=== PATIENT | female | born 1950 | race Caucasian/White ===

== ENCOUNTER 2025-02-25 14:33 | Inpatient (IN) | payer MEDICARE, OTHER, SELFPAY ==
[2025-02-25] VITALS (11 sets, daily range): BP systolic 113–158; BP diastolic 52–76; PULSE 76–91; RESP 16–22; TEMP 36.6–36.9; O2SAT 88–96; BMI 27.4
--- NOTE | 2025-02-25 | ECG_ITS ---
Test Reason : SOB Blood Pressure : */* mmHG Vent. Rate : 85 BPM Atrial Rate : 85 BPM P-R Int : 172 ms QRS Dur : 78 ms QT Int : 378 ms P-R-T Axes : 70 73 86 degrees QTcB Int : 449 ms Poor data quality, interpretation may be adversely affected Sinus rhythm with Premature atrial complexes Otherwise normal ECG No previous ECGs available Referred By: Generic ED Physician Electronically Signed By:
--- NOTE | ~2025-02-25 | XR_ITS ---
EXAMINATION: XR CHEST CLINICAL INFORMATION: no improvement after abx for pna COMPARISON: None available. TECHNIQUE: 2 views of the chest were obtained. FINDINGS: Hyperinflated lungs. No consolidation, pleural fissure pneumothorax. Pulmonary reticular pattern. Cardiomediastinal silhouette size is normal. Calcified plaque thoracic aortic arch. Multilevel thoracic and upper lumbar spondylosis. S-shaped curvature of the thoracolumbar spine. Osteopenia versus osteoporosis. Degenerative changes in the acromioclavicular joints. XR/XR chest 2V IMPRESSION: Consider chronic interstitial lung disease without acute airspace disease. Electronically signed by: Jose J Antunez MD 02/25/2025 03:42 PM EDT
--- NOTE | 2025-02-25 14:56 | ED_ITS ---
HPI - General Adult General Chief complaint: Dyspnea Stated complaint: SOB,RECENT PNA,94% RA,DUONEB GIVEN PER EMS Time Seen by Provider: 02/25/25 14:56 Source: patient, EMS, RN notes reviewed and old records reviewed Mode of arrival: EMS Limitations: no limitations History of Present Illness ED Provider: Julio C HPI narrative: Patient is a 74-year-old female with pmhx hypothyroidism presenting to the emergency department with complaint of shortness of breath and cough despite recent treatment for pneumonia. States that she completed the full course of prednisone and abx prescribed to her. Denies history of asthma or COPD but states she typically gets bronchitis twice a year. Denies chest pain, palpitations, leg swelling, weight gain. Denies fevers. MD complaint: shortness of breath Onset (ago): week(s) Related Data Allergies Allergy/AdvReac Type Severity Reaction Status Date / Time bupropion [From Wellbutrin] Allergy Intermediate Headache Verified 02/25/25 15:02 Penicillins Allergy Intermediate Rash Verified 02/25/25 15:02 Sulfa (Sulfonamide Allergy Intermediate Rash Verified 02/25/25 15:02 Antibiotics) Review of Systems 2 Review of Systems: as per hpi Yes all other systems are reviewed and are negative Constitutional: Constitutional: Reports as per HPI PMFSH Past Medical History Medical History (Updated 02/25/25 @ 17:27 by Ruth Ann Bunch NP) High cholesterol Hypothyroid Surgical History (Updated 02/25/25 @ 15:06 by Jessie Aleman RN) S/P tonsillectomy H/O breast surgery Social History Social History Smoked in Last 30 Days: Yes Use of substances other than those prescribed or required for medical reasons: No Advance Directives: No Advance Directives Information Provided: No Do you have a plan to hurt others: No Plan Physical Exam ED Vital Signs: Vital Signs - 24 hr 02/25/25 14:44 02/25/25 15:00 02/25/25 15:09 Temperature 98.1 F 97.9 F Pulse Rate 84 81 Respiratory Rate 22 H 18 Blood Pressure 124/55 L 124/55 L Pulse Oximetry 90 L 88 L 94 Oxygen Delivery Method Room Air Room Air Nasal Cannula Oxygen Flow Rate 2 02/25/25 16:03 Temperature Pulse Rate 76 Respiratory Rate 19 Blood Pressure 136/61 Pulse Oximetry 96 Oxygen Delivery Method Nasal Cannula Oxygen Flow Rate 2 BMI result Body Mass Index 27.4 Vital signs have been reviewed and appear to be correct. Blood pressure normal. Heart rate normal. Respiratory rate normal. Temperature normal. Oxygen saturation hypoxic on room air. Const General: cooperative, healthy appearing and no acute distress Orientation/consciousness: oriented to person, oriented to place, oriented to time and patient oriented x3 Limitations: no limitations HENMT Head: Yes normocephalic and Yes atraumatic Ears: external ears normal General nose exam: Normal external nose present Face and sinus: Yes face symmetric Mouth: oropharynx normal and moist mucous membranes Throat: Yes uvula midline Eyes Pupils: Equal, round and reactive pupils present Neck Neck: Yes normal visual inspection and Yes supple Resp Effort & Inspection: normal respiratory effort and able to speak in complete sentences Auscultation: wheezes expiratory wheezes and throughout Cardio Rate: regular rate Rhythm: regular rhythm Heart sounds: S1 normal heart sound present and S2 normal heart sound present GI Palpation (GI): Soft to palpation and nontender Auscultation: normoactive bowel sounds General: Yes no CVA tenderness Back/Spine/Pelvis Back: no CVA tenderness Skin General skin exam: elasticity normal and turgor normal Neuro General: oriented to person, oriented to place, oriented to time, patient oriented x3, moves all extremities, no focal motor deficits and CN's II-XI intact bilaterally Cranial nerves: Yes Equal, round and reactive pupils present Cognition (Neuro): normal cognition Extrem General: Yes full ROM, Yes no pedal edema and Yes no calf tenderness Psych Mental Status: mental status grossly normal Affect: normal affect Thought process: Normal thought process present Medical Decision Making Medical Decision Making MDM Narrative: Patient is a 74-year-old female with pmhx hypothyroidism presenting to the emergency department with complaint of shortness of breath and cough despite recent treatment for pneumonia. On exam patient is awake, A+Ox3, hypoxic on room air, VS otherwise WNL, afebrile, normal neurological exam without focal deficits, physical exam findings as above. Given reported symptoms and physical exam findings, initial differential includes but is not limited to failed outpatient treatment of pneumonia, viral illness, bronchitis. Unlikely PE. Labs notable for left shift without leukocytosis. Viral panel negative. X-ray notable for reticular pattern without evidence of pneumonia. My interpretation is in agreement with the radiologist's interpretation. Case discussed with Dr. West who accepts admission to medicine. Differential Diagnosis Differential Diagnoses: The differential diagnosis associated with the presentation includes as per [facility] Admission/Observation Consideration of admission/observation: Escalation of care including admission/observation considered Patient would have been admitted to the hospital had their work up had any findings where hospital admission was appropriate and their clinical presentation warranted hospital admission. Consult Healthcare Provider Management of the patient was discussed with: Hospitalist Lab Data [facility] Lab Attestation statement: I reviewed the patient's lab results. as per [facility] 02/25/25 15:50 02/25/25 15:50 Labs: Lab Results 02/25/25 Range/Units 15:50 WBC 10.3 (4.8-10.8) X10*3/uL RBC 4.50 (4.20-5.50) X10*6/uL Hgb 13.1 (12.0-16.0) g/dl Hct 41.1 (37.0-47.0) % MCV 91.3 (80.0-98.0) fL MCH 29.1 (27.0-33.0) pg MCHC 31.9 (31.0-35.0) g/dl RDW 13.1 (11.0-16.0) % Plt Count 581 H (160-400) X10*3/uL MPV 8.2 L (9.4-12.3) fL Immature Gran % (Auto) 0.8 H (0.0-0.4) % Neut % (Auto) 84.9 H (45-73) % Lymph % (Auto) 12.5 L (20-40) % [place] % (Auto) 1.6 L (2-11) % Eos % (Auto) 0.0 (0-4) % Baso % (Auto) 0.2 (0-2) % Lymph # (Auto) 1.3 (1.2-4.9) X10*3/uL [place] # (Auto) 0.2 (0.1-1.2) X10*3/uL Eos # (Auto) 0.0 (0.0-0.4) X10*3/uL Baso # (Auto) 0.0 (0.0-0.2) X10*3/uL Abs Immat Gran (auto) 0.08 H (0.00-0.03) X10*3/uL Absolute Neuts (auto) 8.8 H (2.0-8.3) x10*3/uL Absolute Nucleated RBC 0.000 (0.0-0.012) X10*3/uL Nucleated RBC % (auto) 0.0 (0.0-0.2) /100WBC Sodium 142 (135-145) mmol/L Potassium 4.2 (3.3-5.1) mmol/L Chloride 104 (96-108) mmol/L Carbon Dioxide 30 H (22-29) mmol/L Anion Gap 12 (12-20) BUN 16 (9-16) mg/dL Creatinine 0.62 (0.5-1.4) mg/dL Estim Creat Clear Calc 81.7 Estimated GFR > 60 Random Glucose 145 H (60-115) mg/dL Calcium 9.0 (8.4-10.2) mg/dL Total Bilirubin 0.3 (0.0-1.0) mg/dL AST 30 (5-31) U/L ALT 50 H (0-31) U/L Alkaline Phosphatase 63 (39-117) U/L Total Protein 6.8 (6.5-8.0) g/dL Albumin 3.8 (3.5-5.0) g/dL Influenza Type A (PCR) NEGATIVE (Negative) Influenza Type B (PCR) NEGATIVE (Negative) RSV RNA Qual (PCR) NEGATIVE (Negative) SARS-CoV-2 RNA (RT-PCR) NEGATIVE (Negative) Independent Interpretation I performed an independent interpretation of an: Plain X-Ray Radiology Impression Discussion of test interpretation with radiology: I have reviewed the radiologist's reading. Radiologist Impression: EXAMINATION: XR CHEST CLINICAL INFORMATION: no improvement after abx for pna COMPARISON: None available. TECHNIQUE: 2 views of the chest were obtained. FINDINGS: Hyperinflated lungs. No consolidation, pleural fissure pneumothorax. Pulmonary reticular pattern. Cardiomediastinal silhouette size is normal. Calcified plaque thoracic aortic arch. Multilevel thoracic and upper lumbar spondylosis. S-shaped curvature of the thoracolumbar spine. Osteopenia versus osteoporosis. Degenerative changes in the acromioclavicular joints. XR/XR chest 2V IMPRESSION: Consider chronic interstitial lung disease without acute airspace disease. External Record Review External record reviewed: Inpatient record, Office record and Outpatient record Discharge Plan Discharge Patient Disposition: Admitted As Inpatient Print Language: Slovak
[2025-02-25 15:56] LABS: MANUAL DIFF FLAG NO
[2025-02-25 15:59] LABS: Basophils Percent Auto 0.2 % (0-2); Hematocrit 41.1 % (37.0-47.0); Hemoglobin 13.1 g/dl (12.0-16.0); Imm Gran Abs Auto 0.08 X10*3/uL (0.00-0.03); Imm Gran Pct Auto 0.8 % (0.0-0.4); Lymphocytes Absolute Auto 1.3 X10*3/uL (1.2-4.9); Lymphocytes Percent Auto 12.5 % (20-40); Mean Corpuscular HGB Conc 31.9 g/dl (31.0-35.0); Mean Corpuscular Hemoglobin 29.1 pg (27.0-33.0); Mean Corpuscular Volume 91.3 fL (80.0-98.0); Mean Platelet Volume 8.2 fL (9.4-12.3); Monocytes Absolute Auto 0.2 X10*3/uL (0.1-1.2); Monocytes Percent Auto 1.6 % (2-11); Neutrophils Absolute Auto 8.8 x10*3/uL (2.0-8.3); Neutrophils Percent Auto 84.9 % (45-73); Platelet Count 581 X10*3/uL (160-400); Red Cell Distribution Width 13.1 % (11.0-16.0); White Blood Count 10.3 X10*3/uL (4.8-10.8)
[2025-02-25 16:19] LABS: Alanine Aminotransferase 50 U/L (0-31); Albumin Level 3.8 g/dL (3.5-5.0); Alkaline Phosphatase 63 U/L (39-117); Anion Gap 12 (12-20); Aspartate Amino Transferase 30 U/L (5-31); Bilirubin Total 0.3 mg/dL (0.0-1.0); Blood Urea Nitrogen 16 mg/dL (9-16); Carbon Dioxide 30 mmol/L (22-29); Chloride 104 mmol/L (96-108); Creatinine Clr Calc Pharmacy 81.7; Estimated Glomerular Filt Rate > 60; Glucose Random 145 mg/dL (60-115); Potassium 4.2 mmol/L (3.3-5.1); Sodium 142 mmol/L (135-145); Total Protein 6.8 g/dL (6.5-8.0)
--- OUTSIDE RECORDS SUMMARY | 2025-02-25 16:31 | XMS_ITS ---
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 Generated for Printi liban/Fasamig/eTransmitting on:?02/25/2025 12:54 PM EDT
--- OUTSIDE RECORDS SUMMARY | 2025-02-25 16:31 | XMS_ITS ---
Author Organization [facility] Address [address] [place] [address] Care Team Providers Care Rn On Site Name Role Phone Ciera Cai Primary Care Provider Unavaila ble Black, Bhavna Unavailable [phone] Allergies Allergen (clinical drug ingredient) Drug/Non Drug Allergy documented on EMR Reaction Allergy Type Onset Date Status aspirin Aspirin Unknown Drug Allergy Active sulfamethoxazole / trimethoprim Bactrim Unknown Drug Allergy Active Penicillin Unknown Drug Allergy Active REASON FOR VISIT Dr Thibodeaux Medications Medication SIG (Take, Route, Frequency, Duration) Notes Start Date End Date Status Albuterol Sulfate HFA 108 (90 Base) MCG/ACT INHALE 2 PUFFS EVERY 6 HOURS NEEDED FOR WHEEZE Inhalation for 25 Days Active Wixela Inhub 500-50 MCG/ACT TAKE 1 PUFF BY MOUTH TWICE A DAY Inhalation for 30 Days Active Atorvastatin Calcium 20 MG TAKE 1 TABLET BY MOUTH EVERYDAY AT BEDTIME Oral for 90 Days Active Clobetasol Propionate 0.05 % External for 60 Days Active Triamcinolone & Emollient 04/02/2024 Active Levothyroxine Sodium 75 MCG PLEASE SEE A TTACHED FOR DETAILED DIRECTIONS Oral for 90 Days Active Social History Tobacco Use: Social History Observation Description Date Details (start date - stop date) Current Smoker NA - NA Tobacco Use/Smoking Question Answer Notes Are you a: current smoker Alcohol Screen Question Answer Notes Did you have a drink containing alcohol in the p ast year? No Points 0 Interpretation Negative Tobacco use other than smoking: Question Answer Notes Are you an other tobacco user? No Vital Signs Height 5 ft 4 in in 07/04/2024 Weight 150 lbs 07/04/2024 BMI 25.74 kg/m2 07/04/2024 Encounters Encounter Location Date Provider Diagnosis [facility] [place] [address] [place] [address] 07/04/2024 Bhavna Reed Plan Of Treatment No Information Progress Notes * Andreia LEROYDOB:[birth year] (74 yo F)Acc No.[id number]:07/04/2024 Progress Notes Patient:?Dax LEROY Provider:?Bhavna Reed DPM :1950???Age:74 Y???Sex:Female D ate:07/04/2024 Address:[address] [place] [address] [place], [place] Pcp:Ciera Cai Subjective: * Chief Complaints: * ???1. Dr Thibodeaux. * ROS:?General/Constitutional:?Nausea?denies.?Vomiting?denies.?Hunger Thirst?denies.?Loss appetite?denies.?Chills?denies.?Fatigue?denies.?Fever?denies.?Night Sweats?denies.?Unexplained weight loss?denies.?Unexplained weight gain?denies.?HEENTM:?Dentures?denies.?Dizziness?denies.?Glasses/contacts?admits.?Retinopathy?de nies.?Blurred/double vision?denies.?TMJ?denies.?Discharge/drainage?denies.?Implants?denies.?Sore throat?denies.?Dental implants?denies.?Hard of hearing ?denies.?Difficulty chewing/swallowing/speaking?denies.?Nose bleeds?denies.?Sore mouth?denies.?Respiratory:?On Oxygen?denies.?Pneumonia/pleurisy?denies.?Bronchitis?admits.?Emphysema?denies.?C oughing?admits.?Cough blood?denies.?Shortness of breath?admits.?Wheezing?admits.?Cardiovascular:?Pacemaker?denies.?MVP?denies.?WPW?denies.?CHF?denies.?Heart attack?denies.?Septal defect?denies.?Rapid beat?denies.?Chest pain ?denies.?Atrial Fib.?denies.?Murmur/Palpitations?denies.?Gastrointestinal:?Hemorrhoids?denies.?Stomach/Abdominal pain?denies.?Dark blood stool?denies.?Irritable bowel ?denies.?Constipation?denies.?Diarrhea?denies.?Hematology:?Swelling?denies.?Clots?denies.?Varicose Veins?denies.?Bruising?denies.?Bleeding problem?denies.?Genitourinary:?Blood urine?denies.?Frequent/Painfu/urination/bladder control?denies.?Kidney stones?denies.?Infection (UTI)?denies.?Nephropathy?denies.?sex trans dis (STD)?denies.?Prostate?denies.?Musculoskeletal:?Hammertoes?denies.?Bunions?denies.?Back Pain?denies.?Muscle Cramps/ Resting?denies.?Muscle cramps / walking?denies.?Generalized aches and pains?admits.?Weakness?denies.?Integ.:?Mckay?denies.?Scars?denies.?Corns/calluses?admits.?Ingrown nails?denies.?Painful nails?denies.?Open Sores?denies.?Rashes?denies.?Neurologic:?Difficulty sleeping?denies.?Brain disorder?denies.?Numbness?admits.?Balance trouble?denies.?Confusion?denies.?Fainting/blackouts?denies.?Tingling?admits.?Tr emors?denies.? * Medical History:?Arthritis, Asthma, Hiatal hernia, Numbness, Psoriasis/eczema, Stomach ulcer, Thyroid, Measles, Chicken pox. * Family History:?Mother: dece ased, diagnosed with Other malignant neoplasm of unspecified site.?Father: .? Nephew - Diabetes. * Social History:?Tobacco Use:?Tobacco Use/Smoking?Are you a:?current smoker ?Tobacco use other than smoking?Are you an other tobacco user??No ???Drugs/Alcohol:?Drugs?Have you used drugs other than those for medical reasons in the past 12 months??No ?Alcohol Screen?Did you have a drink containing alcohol in the past year??No ?Points?0 ?Interpretation?Negative ???Miscellaneous:?Caffeine: yes, 4 cups. ?Children: yes, 2. ?Exercise: no. ?Marital status: . * Medications:?Taking Levothyr oxine Sodium 75 MCG Tablet PLEASE SEE ATTACHED FOR DETAILED DIRECTIONS Oral , Taking Atorvastatin Calcium 20 MG Tablet TAKE 1 TABLET BY MOUTH EVERYDAY AT BEDTIME Oral , Taking Triamcinolone & Emollient , Taking Clobetasol Propionate 0.05 % Cream External , Taking Albuterol Sulfate HFA 108 (90 Base) MCG/ACT Aerosol Solution INHALE 2 PUFFS EVERY 6 HOURS NEEDED FOR WHEEZE Inhalation , Taking Wixela Inhub 500-50 MCG/ACT Aerosol Powder Breath Activated TAKE 1 PUFF BY MOUTH TWICE A DAY Inhalation * Allergies:?Penicillin, Bactr im, Aspirin. Objective: * Vitals:?Ht: 5 ft 4 in, Wt:15 0, BMI:25.74, Shoe size: 7.5, Ht-cm: 162.56 cm, Wt- k.04 kg. Assessment: Plan: * Treatment: * Images: * The named appointment provid er may or may not be the originator of this progress note, and it is not deemed complete until electronically signed by the appointment provider. Sign off status: Pending * Provider:Kalen Reed DPM Date:?2023 Generated for Arley louie/Obed/Dmitriy on:?02/25/2025 12:54 PM EDT
--- OUTSIDE RECORDS SUMMARY | 2025-02-25 16:31 | XMS_ITS ---
Author Name [facility] Organization Unknown Encounters Encounter Type Encounter Reason Primary Diagnosis Location Date Ambulatory [facility] 10/13/2024
--- OUTSIDE RECORDS SUMMARY | 2025-02-25 16:31 | XMS_ITS ---
Author Organization [facility] Address [address] [place] [address] Care Team Providers Care Naval Designer Name Role Phone Ciera Cai Primary Care Provider Unavaila ble Black, Bhavna Unavailable [phone] Allergies Allergen (clinical drug ingredient) Drug/Non Drug Allergy documented on EMR Reaction Allergy Type Onset Date Status aspirin Aspirin Unknown Drug Allergy Active sulfamethoxazole / trimethoprim Bactrim Unknown Drug Allergy Active Penicillin Unknown Drug Allergy Active Results Component Value Reference Range Notes X ray : Foot, right 3V Reviewed date:06/17/2024 02:57:39 PM Interpretation:See Examination above Performing Lab: Notes/Report: See Examination above REASON FOR VISIT Pcp- 06/10/24, Painful Toe(s), Foot pain Medications Medication SIG (Take, Route, Frequency, Duration) Notes Start Date End Date Status Wixela Inhub Active Clobetasol Propionate 0.05 % External for 60 Days Active Triamcinolone (oint)-Silicone Active Albuterol Active Atorvastatin Calcium 20 MG 1 tablet Oral ly Once a day Active Levothyroxine Sodium 75 MCG 1 tablet in the morning on an empty stomach Orally Once a day Active Social History Tobacco Use: Social History Observation Description Date Details (start date - stop date) Current Smoker NA - NA Tobacco Use/Smoking Question Answer Notes Are you a: current smoker How often do you smoke cigarettes? every day How many cigarettes a day do you smoke? 11-20 How soon after you wake up do you smoke your fir st cigarette? 6-30 minutes Are you interested in quitting? Not ready to john t Alcohol Screen Question Answer Notes Did you have a drink containing alcohol in the p ast year? No Points 0 Interpretation Negative Tobacco use other than smoking: Question Answer Notes Are you an other tobacco user? No Problems Problem Type SNOMED Code ICD Code Onset Dates Problem Status W/U Status Risk Notes Problem Acquired hammer toe of right foot (7489698677781471) Other hammer toe(s) (acquired), right foot (M20.41) Active confirmed Problem Localized, primary osteoarthritis of the ankle and/or foot (937642092) Arthritis of joint of lesser toe, right (M19.071) Active confirmed Problem Acquired hallux valgus (13201429) Hallux valgus (acquired), right foot (M20.11) Active confirmed Problem [id number] Hallux rigidus, right foot (M20.21) Active confirmed Vital Signs Height 5ft 4in in 06/17/2024 Weight 150 lbs 06/17/2024 BMI 25.74 kg/m2 06/17/2024 Blood pressure systolic 120 mm Hg 06/17/20 24 Blood pressure diastolic 60 mm Hg 024 Encounters Encounter Location Date Provider Diagnosis [facility] [address] [address] 06/17/2024 Bhavna Black Pain in right toe(s) M79.674 ; Other hammer toe(s) (acquired), right foot M20.41 ; Arthritis of joint of lesser toe, right M19.071 ; Subluxation of metatarsophalangeal joint of toe, initial encounter S93.149A ; Pain in right foot M79.671 ; Pain in right ankle and joints of right foot M25.571 ; Bursitis of intermetatarsal bursa of right foot M77.51 ; Metatarsalgia, right foot M77.41 and Hallux rigidus, right foot M20.21 Assessments Encounter Date Diagnosis (ICD Code) Assessment Notes Treatment Notes Treatment Clinical Notes Section Notes 06/17/2024 Pain in right toe(s) (ICD-10 - M79.674) 06/17/2024 Other hammer toe(s) (acquired), right foot (ICD-10 - M20.41) 06/17/2024 Arthritis of joint o f lesser toe, right (ICD-10 - M19.071) 06/17/2024 Subluxation of metatarsophalangeal joint of toe, initial encounter (ICD-10 - S93.149A) 06/17/2024 Pain in right foot (ICD-10 - M79.671) 06/17/2024 Pain in right ankle and joints of right foot (ICD-10 - M25.571) 06/17/2024 Bursitis of intermetatarsal bursa of right foot (ICD-10 - M77.51) 06/17/2024 Metatarsalgia, right foot (ICD-10 - M77.41) 06/17/2024 Hallux rigidus, righ t foot (ICD-10 - M20.21) Plan Of Treatment Next Appt Details Follow Up: prn, Reason: Progress Notes * Andreia LEROYDOB:[birth year] (74 yo F)Acc No.[id number]:06/17/2024 Progress Notes Patient:?Dax Leroy Provider:?Bhavna Rede DPM :1950???Age:74 Y???Sex:Female D ate:06/17/2024 Address:[address] [place], [place] [id number] Pcp:Ciera Cai Subjective: * Chief Complaints: * ???Pcp- 06/10/24Painful Toe( s)Foot pain * HPI: ???Toe pain:?Nature:?tenderness.?Location:?Right foot.?Duration:?several months.?Course:?worse.?Aggravated by:?any pressure, shoes.?Treatments:?rest/alter normal daily activity, change in shoes.?Foot Pain:?Location:?RIGHT.?Duration:?, several months.?Course:?worse.?Aggravated:?any pressure.?Treatments:?rest/alter normal daily activity ,?.? * ROS:?General/Constitutional:?Nausea?denies.?Vomiting?denies.?Hunger Thirst?denies.?Loss appetite?denies.?Chills?denies.?Fatigue?denies.?Fever?denies.?Night Sweats?denies.?Unexplained weight loss?denies.?Unexplained weight gain?denies.?HEENTM:?Dentures?denies.?Dizziness?denies.?Glasses/contacts?admits.?Retinopathy?de nies.?Blurred/double vision?denies.?TMJ?denies.?Discharge/drainage?denies.?Implants?denies.?Sore throat?denies.?Dental implants?denies.?Hard of hearing ?denies.?Difficulty chewing/swallowing/speaking?denies.?Nose bleeds?denies.?Sore mouth?denies.?Respiratory:?On Oxygen?denies.?Pneumonia/pleurisy?denies.?Bronchitis?admits.?Emphysema?denies.?C oughing?admits.?Cough blood?denies.?Shortness of breath?admits.?Wheezing?admits.?Cardiovascular:?Pacemaker?denies.?MVP?denies.?WPW?denies.?CHF?denies.?Heart attack?denies.?Septal defect?denies.?Rapid beat?denies.?Chest pain ?denies.?Atrial Fib.?denies.?Murmur/Palpitations?denies.?Gastrointestinal:?Hemorrhoids?denies.?Stomach/Abdominal pain?denies.?Dark blood stool?denies.?Irritable bowel ?denies.?Constipation?denies.?Diarrhea?denies.?Hematology:?Swelling?denies.?Clots?denies.?Varicose Veins?denies.?Bruising?denies.?Bleeding problem?denies.?Genitourinary:?Blood urine?denies.?Frequent/Painfu/urination/bladder control?denies.?Kidney stones?denies.?Infection (UTI)?denies.?Nephropathy?denies.?sex trans dis (STD)?denies.?Prostate?denies.?Musculoskeletal:?Hammertoes?denies.?Bunions?denies.?Back Pain?denies.?Muscle Cramps/ Resting?denies.?Muscle cramps / walking?denies.?Generalized aches and pains?admits.?Weakness?denies.?Integ.:?Mckay?denies.?Scars?denies.?Corns/calluses?admits.?Ingrown nails?denies.?Painful nails?admits.?Open Sores?denies.?Rashes?denies.?Neurologic:?Difficulty sleeping?denies.?Brain disorder?denies.?Numbness?admits.?Balance trouble?denies.?Confusion?denies.?Fainting/blackouts?denies.?Tingling?admits.?Tr emors?denies.? * Medical History:? * Surgical History:?breast bio psy colonoscopy tonsillectomy x2 * Hospitalization/Major Diagno stic Procedure:?Denies Past Hospitalization * Family History:?Mother: dece ased, diagnosed with Other malignant neoplasm of unspecified site.?Father: .? Nephew - Diabetes. * Social History:?Tobacco Use:?Tobacco Use/Smoking?Are you a:?current smoker ?How often do you smoke cigarettes??every day ?How many cigarettes a day do you smoke??11-20 ?How soon after you wake up do you smoke your first cigarette??6-30 minutes ?Are you interested in quitting??Not ready to quit ?Tobacco use other than smoking?Are you an other tobacco user??No ???Drugs/Alcohol:?Drugs?Have you used drugs other than those for medical reasons in the past 12 months??No ?Alcohol Screen?Did you have a drink containing alcohol in the past year??No ?Points?0 ?Interpretation?Negative ???Miscellaneous:?Caffeine: yes, 4 cups. ?Children: yes, 2. ?no Exercise. ?Marital status: . ?Occupation: Retired- [employer]. * Medications:?TakingWixela In hub Albuterol Triamcinolone (oint)-Silicone Atorvastatin Calcium 20 MG Tablet 1 tablet Orally Once a dayLevothyroxine Sodium 75 MCG Tablet 1 tablet in the morning on an empty stomach Orally Once a dayClobetasol Propionate 0.05 % Cream External Medication List reviewed and reconciled with the patientTaking Wixela Inhub Taking Albuterol Taking Triamcinolone (oint)-Silicone Taking Atorvastatin Calcium 20 MG Tablet 1 tablet Orally Once a dayTaking Levothyroxine Sodium 75 MCG Tablet 1 tablet in the morning on an empty stomach Orally Once a dayTaking Clobetasol Propionate 0.05 % Cream External Medication List reviewed and reconciled with the patient * Allergies:?PenicillinBactrim Aspirinyes[Allergies Verified] Objective: * Vitals:?Ht: 5ft 4in, Wt:150, BMI:25.74, Shoe size: 7.5, BP:120/60 mm Hg, Ht-cm: 162.56 cm, Wt-k.04 kg. * Examination: ???General Examination: ?GENERAL APPEARANCE:?Reveals a pleasant, alert, well nourished, well- developed, well hydrated individual, who demonstrates proper attention to hygiene/body habitus, and is in no acute distress, Pt serves as own historian for office visit today.?ORIENTED:?person, place, and time.?Orthopedic: ?MUSCLE STRENGTH:?5/5 all groups in a symmetrical fashion, B/L.?GAIT ABNORMALITY:?antalgic.?FOOT MORPHOLOGY:?normal , B/L.?BUNION:?Dorso-Medially prominent 1st MPJ , inflammation present , Limited 1st MPJ Dorsal ROM , Limited 1st MPJ Plantar ROM , Crepitus with ROM present right.?DIGITAL DEFORMITIES:?Digital contracture, PIPJ, 2-5 B/L, incompl-reducible with WB, or to push-up test, no over, nor underlapping , Reveals pain/swelling/redness/enlargement of PIPJ , T8 , T9.?MPJ PATHOLOGY:? Pain, swelling, and inflammation to dorsal? MPJ(s), 4,5??RIGHT, No MPJ pain with ROM, [ - ] Ecchymosis.?FOOTWEAR:? shoe gear properties exacerbate patients foot/toe deformity.?Neurological: ?SENSORY:?Neurological exam reveals intact sensorium, pain sensation normal, vibration sensation intact, pinprick sensation is normal in the lower extremities, Pt denies, anesthesia, burning, paresthesia, tingling, B/L.?TINEL'S COMPRESSION:? Negative, Saphenous nerve distribution, Right , Negative tarsal tunnel, anisa pedis, and medial calcaneal nerves, Right.?Neuroma Pain: ?PALPATION:?No interspace pain noted on palpation.?Vascular: ?DP PULSES:?2/4, B/L.?PT PULSES:?2/4, B/L.?CAPILLARY FILL TIME:?immediate, all digits, B/L.?SKIN TEMPERTURE GRADIENT OF THE LOWER EXTERMITIES:?normal, warm to cool, proximal to distal, B/L, B/L.?HAIR GROWTH/TEXTURE/ELASTICITY/TURGOR:?normal, B/L.?PIGMENTATION:?normal, B/L.?EDEMA:?absent, B/L.?X-Rays - IMAGING REPORT: ?Clinical Indication(s):? Evaluate Biomechanical Deformity ,Evaluate for Fracture.?Views:??3 views of Foot, AP, LAT, LO, RIGHT.?Findings:?, normal bone and soft tissue density consistent for patients age and sex ] 4,5 th Right metatarsal with hypertrophied MTH.?Digits:? show asymmetrical joint space narrowing at the PIPJ consistent with clinical finding of hammertoe deformity.?HAV:?there is asymmetrical narrowing of the 1st MPJ joint space , there is increased density of the 1st MPJ with asymmetrical joint space narrowing , there is squaring of the 1st MTH , there is an exostosis located at the dorsal aspect of the 1st MTH , there is an exostosis located at the dorsal aspect of the base of the proximal phalanx.?Fracture:?old fx , mild displaced , intra-articular extending into joint margin , base of , middle phalange , T8.? Assessment: * Assessment: 1.?Pain in right toe(s) - M7 9.674?2.?Other hammer toe(s) (acquired), right foot - M20.41 (Primary)?3.?Arthritis of joint of lesser toe, right - M19.071?4.?Subluxation of metatarsophalangeal joint of toe, initial encounter - S93.149A?5.?Pain in right foot - M79.671?6.?Pain in right ankle and joints of right foot - M25.571?7.?Bursitis of intermetatarsal bursa of right foot - M77.51?8.?Metatarsalgia, right foot - M77.41?9.?Hallux rigidus, right foot - M20.21? Plan: * Treatment: * Procedure Codes:?61049 X-RAY EXAM OF RIGHT FOOT 3V, Modifiers: 26 , RT * Preventive Medicine:? ??Counseling:?Discussion:?-04: Office or other outpatient visit for the evaluation and management of a new patient, which required a medically appropriate history and/or examination and MODERATE level of DECISION MAKING for: 1 OR MORE CHRONIC PROBLEM(S) THATS WORSENING, 2 STABLE CHRONIC PROBLEMS, A NEWLY DIAGNOSED PROBLEM WITH UNCERTAIN PROGNOSIS, AN ACUTE COMPLICATED INJURY WITH MULTIPLE TREATMENT OPTIONS, OR AN ACUTE PROBLEM WITH ACCOMPANYING SYSTEMIC SYMPTOMS, THAT POSE(S) A MODERATE RISK OF MORBIDITY. THIS CONDITION MAY ALSO INCLUDE RX DRUG MANAGEMENT, OR A DECISON FOR MINOR SURGERY. The visit on the day of the encounter encompassed interpreting the data and educating the patient as to the nature of their condition, treatment options available according to their individual PMH, meds, allergies, and overall health/living conditions, as well as any potential risks or complications that may occur from a failure to adhere to, and participate in, the recommended course of therapy. The discussion included a complete verbal, and/or written explanation of the examination results, any x-rays taken, the proposed diagnosis, and outline of the treatment plan. A schedule for future care needs was also explained. The patient verbalized an understanding of the instructions at this time and agreed to be an active participant in their treatment. If the patient should think of any questions or concerns after the visit, I have encouraged the patient to call the office.?Digital Surgery:?Digital surgery was discussed with the patient, including the risks of surgery(below), vs not having surgery (persistent pain, deformity, risk for skin ulceration/infection, loss of toe), the potential surg complications, the anesthesia, and the usual post-op course. No guarentees were given. We discussed the potential procedure complications including, but not limited to: pain, swelling, bleeding, scarring, numbness, infection, delayed/non healing, floppy/unstable/shorthened toe, recurrence, failure of the procedure, overcorrection leading to plantarflexed/downward positioned toe, recurrence, need for further surgery, as well as the possibility for loss of the toe itself. We discussed the use of local anesthesia, and the usual post-op course for healing. No guarentees were given. The patient verbally indicated a full understanding of the above conversation, and any other of their questions were answered to their satisfaction. Alternatives to the procedure were also discussed, including conservative care. I also discussed the usual post-operative course and gave no guarantees regarding outcome, We elected to try conservative treatment at the present time.?Digital Treatment:?HT- I explained to the patient the possible etiologies of Hammertoes, including genetics/foot type/shoegear/activity level/exercise routine and the risks/benefits of all the different treatment options for their pain including: No treatment at all, Rest, Ice, New/supportive/wider/deeper Shoegear, Digital Padding/Strapping/Taping/Bracing/Gel protective sleeves, Foot/Ankle AFO Bracing, Stretching exercises, Deep Tissue Massage, Arch support/shoe inserts with splay metatarsal padding, and Custom orthoses. I insisted that any digital devices be removed daily and not worn overnight for safety. The patient is to carefully examine the toes daily for any skin irritation while using any splinting or padding device. The advantages and disadvantages of each option were discussed and the patients questions re: shoegear, padding, custom vs prefabricated inserts, activity level, and consistency in home treatment regimens for optimal success were answered to their verbally confirmed satisfaction, Recomm, rest, ice, proper shoegear, padding, orthotics, anti-inflammatories or tylenol as tolerated, topical analgesics, cortisone injections, HV - I explained to the patient the risks/benefits of all the different treatment options for their pain including: No treatment at all, Rest, Ice, New/supportive/wider/deeper Shoegear, Digital Padding/Strapping/Taping/Bracing/Gel protective sleeves, Foot/Ankle AFO Bracing, Stretching exercises, Deep Tissue Massage, Arch support/shoe inserts with splay metatarsal padding, and Custom orthoses. I insisted that any digital devices be removed daily and not worn overnight for safety. The patient is to carefully examine the toes daily for any skin irritation while using any splinting or padding device. The advantages and disadvantages of each option were discussed and the patients questions re: shoegear, padding, custom vs prefabricated inserts, activity level, and consistency in home treatment regimens for optimal success were answered to their verbally confirmed satisfaction.?Discussion for Bunion sx:?Discussed and reviewed the X-rays with the patient. We discussed how the findings relate to the patients symptoms/complaints. Answered any and all questions., Recomm, rest, ice, proper shoegear, padding, orthotics, anti-inflammatories or tylenol as tolerated, topical analgesics, cortisone injections.?Metatarsalgea:?I explained to the patient the possible etiologies of their Metatarsalgea Foot pain, including foot type/shoegear/activity level/exercise routine and the risks/benefits of all the different treatment options for pain including: No treatment at all, Rest, Ice, NSAIDs(only if well tolerated after meals), New/supportive Shoegear, Strappings and Tapings, Foot/Ankle AFO Bracing, Stretching exercises, Deep Tissue Massage, Arch support/shoe inserts, Custom orthoses, Topical analgesics including Aspercream/Voltaren gel, Physical Therapy, Cortisone injection therapy, EPAT/ESWT. Advantages and disadvantages of each option were discussed and the patients questions re: shoegear, custom vs prefabricated inserts, activity level, PO vs Topical medications (and their respective potential complications/drug interactions/side effects), and consistency in home treatment regimens for optimal success were answered to their verbally confirmed satisfaction, Topical analgesics of Aspercream or Voltaren gel.? * Follow Up:?prn * Images: * Sign off status: Completed true * Provider:?Bhavna Reed DPM Date:?2023 Generated for Arley louie/Obed/Dmitriy on:?02/25/2025 12:54 PM EDT History and Physical Notes * HPI (History of Present Illness) Category Sub-Category Detail Notes Category Not es Toe pain Nature: tenderness Location: Right foot Duration: several months Course: worse Aggravated by: any pressure, shoes Treatments: rest/alter normal da kaleigh activity, change in shoes Foot Pain Location: RIGHT Duration: , several months Course: worse Aggravated: any pressure Treatments: rest/alter normal da kaleigh activity , Examination Category Sub-Category Detail Notes Category Not es Neuroma Pain PALPATION: No interspace pain noted on palpation Neurological SENSORY: Neurological exa m reveals intact sensorium, pain sensation normal, vibration sensation intact, pinprick sensation is normal in the lower extremities, Pt denies, anesthesia, burning, paresthesia, tingling, B/L TINEL'S COMPRESSION: Negative, Saphenous nerve distribution, Right , Negative tarsal tunnel, anisa pedis, and medial calcaneal nerves, Right Orthopedic GAIT ABNORMALITY: antalgic FOOT MORPHOLOGY: normal , B/L BUNION: Dorso-Medially promi nent 1st MPJ , inflammation present , Limited 1st MPJ Dorsal ROM , Limited 1st MPJ Plantar ROM , Crepitus with ROM present right FOOTWEAR EVALUATION: shoe gear propertie s exacerbate patients foot/toe deformity DIGITAL DEFORMITIES: Digital contracture , PIPJ, 2-5 B/L, incompl-reducible with WB, or to push-up test, no over, nor underlapping , Reveals pain/swelling/redness/enlargement of PIPJ , T8 , T9 MPJ PATHOLOGY: Pain, swelling, and inflammation to dorsal MPJ(s), 4,5 RIGHT, No MPJ pain with ROM, [ - ] Ecchymosis MUSCLE STRENGTH: 5/5 all groups in a symmetrical fashion, B/L General Examination GENERAL APPEARANCE: Reveals a pleasant, alert, well nourished, well-developed, well hydrated individual, who demonstrates proper attention to hygiene/body habitus, and is in no acute distress, Pt serves as own historian for office visit today ORIENTED: person, place, and t tiffany Vascular DP PULSES (B): 2/4, B/L PT PULSES (B): 2/4, B/L CAPILLARY FILL TIME: immediate, all digi ts, B/L TEMPERTURE GRADIENT (C): normal, warm to cool, proximal to distal, B/L, B/L TROPHIC CONDITION-TEXTURE/ELASTICITY/TURGOR/HAIR GROWTH (B): normal, B/L EDEMA (C): absent, B/L PIGMENTATION: normal, B/L X-Rays - IMAGING REPORT Findings: , normal bone and soft tissue density consistent for patients age and sex ] 4,5 th Right metatarsal with hypertrophied MTH Fracture: old fx , mild displa sona , intra-articular extending into joint margin , base of , middle phalange , T8 Digits: show asymmetrical franky int space narrowing at the PIPJ consistent with clinical finding of hammertoe deformity HAV: there is asymmetrica l narrowing of the 1st MPJ joint space , there is increased density of the 1st MPJ with asymmetrical joint space narrowing , there is squaring of the 1st MTH , there is an exostosis located at the dorsal aspect of the 1st MTH , there is an exostosis located at the dorsal aspect of the base of the proximal phalanx Views: 3 views of Foot, AP, LAT, LO, RIGHT Clinical Indication(s): Evaluate Biomech anical Deformity ,Evaluate for Fracture
--- OUTSIDE RECORDS SUMMARY | 2025-02-25 16:31 | XMS_ITS | Patient Health Record ---
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 Role Phone Ciera Cai Primary Care Provider Unavaila ble Black, Bhavna Unavailable [phone] Allergies Allergen (clinical drug ingredient) Drug/Non Drug Allergy documented on EMR Reaction Allergy Type Onset Date Status aspirin Aspirin Unknown Drug Allergy Active sulfamethoxazole / trimethoprim Bactrim Unknown Drug Allergy Active Penicillin Unknown Drug Allergy Active Results Component Value Reference Range Notes X ray : Foot, right 3V Reviewed date:06/17/2024 02:57:39 PM Interpretation:See Examination above Performing Lab: Notes/Report: See Examination above Reason For Referral No Information Medications Medication SIG (Take, Route, Frequency, Duration) Notes Start Date End Date Status Albuterol Sulfate HFA 108 (90 Base) MCG/ACT INHALE 2 PUFFS EVERY 6 HOURS NEEDED FOR WHEEZE Inhalation for 25 Days Active Wixela Inhub Active Wixela Inhub 500-50 MCG/ACT TAKE 1 PUFF BY MOUTH TWICE A DAY Inhalation for 30 Days Active Clobetasol Propionate 0.05 % External for 60 Days Active Levothyroxine Sodium 75 MCG 1 tablet in the morning on an empty stomach Orally Once a day Active Atorvastatin Calcium 20 MG TAKE 1 TABLET BY MOUTH EVERYDAY AT BEDTIME Oral for 90 Days Active Levothyroxine Sodium 75 MCG PLEASE SEE A TTACHED FOR DETAILED DIRECTIONS Oral for 90 Days Active Clobetasol Propionate 0.05 % External for 60 Days Active Triamcinolone & Emollient 04/02/2024 Active Triamcinolone (oint)-Silicone Active Albuterol Active Atorvastatin Calcium 20 MG 1 tablet Oral ly Once a day Active Social History Tobacco [...] Status W/U Status Risk Notes Problem Acquired hallux valgus (84500346) Hallux valgus (acquired), right foot (M20.11) Active confirmed Problem Acquired hammer toe of right foot (8535625257805541) Other hammer toe(s) (acquired), right foot (M20.41) Active confirmed Problem [id number] Hallux rigidus, right foot (M20.21) Active confirmed Problem Localized, primary osteoarthritis of the ankle and/or foot (622518259) Arthritis of joint of lesser toe, right (M19.071) Active confirmed Vital Signs Blood pressure diastolic 60 mm Hg 06/17/2024 Height 5ft 4in in 06/17/2024 Blood pressure systolic 120 mm Hg 06/17/2024 Weight 150 lbs 06/17/2024 BMI 25.74 kg/m2 06/17/2024 Encounters Encounter Location Date Provider Diagnosis [address] [address] 06/17/2024 Bhavna Black Pain in right toe(s) [...] M77.41 and Hallux rigidus, right foot M20.[address] [address] 03/22/[facility]24 [facility] [address] 04/02/2024 Bhavna Reed Assessments Encounter Date Diagnosis (ICD Code) Assessment [...] foot (ICD-10 - M20.21) Plan Of Treatment No Information Insurance Providers Payer Name Payer Address Payer Phone Subscriber Number Group Number Insured Name Patient Relationship to Insured Coverage Start Date Coverage End Date Medicare [employer] [address] [place] [address] [id number] Andreia Greer i Self - patient is the insured [facility] [address] [facility] [place] [address] [id number] Andreia Greer i Self - patient is the insured Medical (General) History Medical History History ICD Code Arthritis asthma Hiatal hernia Numbness Psoriasis/eczema Stomach ulcer thyroid Measles Chicken pox Surgical History Surgery Date(Month/Year) breast biopsy colonoscopy tonsillectomy x2
[2025-02-25 16:37] LABS: Influenza A PCR NEGATIVE (Negative); Influenza B PCR NEGATIVE (Negative); Resp Syncy Virus RNA Qual PCR NEGATIVE (Negative); SARS COV2 PCR INHOUSE NEGATIVE (Negative)
[2025-02-25] MEDS: Albuterol Sulfate 2.5 MG, Albuterol/Iprat 2.5/0.5MG 3 ML 3 ML INHALE (17:52)
--- NOTE | 2025-02-25 17:57 | PC.NURSE ---
pt was ambulated with pulse ox without o2, pts O2 sat went from mid 90s to 90. upon returning to the bed, the patient was speaking with this nurse and her O2 sat dropped to 89% on room air while at rest, pt is speaking in full sentences but continues to have wheezing throughout. provider was notified, RT now at bedside to do updraft.
--- NOTE | 2025-02-25 18:07 | PHA.MEDREC ---
Addendum entered by Stephanie Collins [facility] 02/25/25 18:12: reviewed Original Note: Pharmacy Consult ? Medication Reconciliation Pharmacy has completed the medication reconciliation. Spoke to patient to confirm med list. Patient states she is no longer taking Benzonatate 100 mg. Patient states she has 4 days left of Prednisone taper ( 20 mg daily x2 days, then 10 mg daily x2 days) patients last dose was 30 mg today.
--- NOTE | 2025-02-25 18:36 | PC.NURSE ---
patient a&ox3, medicated per order, rr equal/currently non labored, in/ex wheezing throughout, pts O2 sat dropped to 89% while talking- was able to speak in full sentences. 2L NC placed pts O2 sat increased to 92%, child monitor nsr, call nguyen within reach, plan of care ongoing
[2025-02-25] MEDS: levoFLOXacin/D5W 750 MG/150 ML PIGGYBACK 100 MG IV (19:10)
--- NOTE | 2025-02-25 19:16 | P.HPHOSP_ITS ---
History of Present Illness Date of Service: 02/25/25 Chief Complaint: Shortness of breath 74-year-old female with known history of COPD in backdrop of active tobacco use presents with worsening shortness of breath. Patient states approximately 2 weeks ago she was seen by her PCP and treated with 2 antibiotics 1 being azithromycin and a prednisone taper for pneumonia. (unclear if there was imaging). Recently completed both and towards the end of the prednisone taper states her breathing began to worsened. She endorses a productive cough of yellow-green sputum and extensive wheezing. She states her inhalers were of no help to her. She presents to ER where her room air sats were in the 80s and responded to 2 L on nasal cannula and are now 93. She will be admitted with COPD exacerbation that has failed outpatient therapies Review of Systems 2 Review of Systems: Denies chest pain Admits to shortness of breath that has worsened over the last week with productive cough Denies nausea vomiting diarrhea Denies fever chills PMFSH Medical History (Updated 02/25/25 @ 19:19 by Jose Alfredo West DO) High cholesterol Hypothyroid Surgical History S/P tonsillectomy H/O breast surgery Social History Patient Tobacco Use Status: Never used Tobacco Smoked in Last 30 Days: Yes Use of substances other than those prescribed or required for medical reasons: No Advance Directives: No Advance Directives Information Provided: No Do you have a plan to hurt others: No Plan Nutrition Risks: No Nutritional Risk Meds Allergies Allergy/AdvReac Type Severity Reaction Status Date / Time bupropion [From Wellbutrin] Allergy Intermediate Headache Verified 02/25/25 15:02 Penicillins Allergy Intermediate Rash Verified 02/25/25 15:02 Sulfa (Sulfonamide Allergy Intermediate Rash Verified 02/25/25 15:02 Antibiotics) Active Medications: Current Medications Acetaminophen (Acetaminophen 325 Mg Tablet) 650 mg PO Q6H PRN PRN Reason: Pain, Mild 1-3,fever,headache Albuterol/Ipratropium (Albuterol/Iprat 2.5/0.5mg 3 Ml Ampul.Neb) 3 ml INHALE RQ4H WHILE AWAKE NADIA Atorvastatin Calcium (Atorvastatin Calcium 20 Mg Tablet) 20 mg PO BEDTIME NADIA Calcium Carbonate (Calcium Carbonate 750 Mg Tab.Chew) 750 mg PO Q4H PRN PRN Reason: Heartburn Enoxaparin Sodium (Enoxaparin Sodium 40 Mg/0.4 Ml Syringe) 40 mg SUBCUT Q24H [facility] Last Admin: 02/25/25 18:34 Dose: Not Given Fluticasone/Vilanterol (Fluticasone/Vilanterol 200/25 Blst.W.Dev) 1 puff INHALE RDAILY [facility] Levofloxacin (Levaquin) 750 mg in 150 mls @ 100 mls/hr IV Q24H [facility] Last Admin: 02/25/25 19:10 Dose: 100 mls/hr Levothyroxine Sodium (Levothyroxine Sodium 75 Mcg Tablet) 75 mcg PO DAILY@0600 [facility] Magnesium Hydroxide (Milk Of Magnesia 30 Ml Oral.Susp) 30 ml PO DAILY PRN PRN Reason: Constipation Melatonin (Melatonin 3 Mg Tablet) 6 mg PO BEDTIME PRN PRN Reason: Insomnia Methylprednisolone Sodium Succinate (Methylprednisolone Sod Succ 125 Mg Vial) 60 mg IVPUSH Q6H [facility] Montelukast Sodium (Montelukast Sodium 10 Mg Tablet) 10 mg PO BEDTIME [facility] Sodium Chloride (0.9 % Sodium Chloride Flush 3 Ml Syringe) 3 ml IVFLUSH QSHIFT [facility] Home Medications ?Medication ?Instructions ?Recorded ?Confirmed ?Last Taken ?Type albuterol sulfate 90 mcg/actuation 2 puff inhalation Q6H PRN wheezing 02/25/25 02/25/25 Unknown History aerosol inhaler atorvastatin 20 mg tablet 20 mg PO BEDTIME 02/25/25 02/25/25 02/24/25 History clobetasol 0.05 % topical cream 1 appl topical BID PRN Rash 02/25/25 02/25/25 Unknown History fluticasone 500 mcg-salmeterol 50 1 ea inhalation BID 02/25/25 02/25/25 02/24/25 History mcg/dose blistr powdr for inhalation (Sergoela Inhub) levothyroxine 75 mcg tablet 75 mcg PO DAILY@0600 02/25/25 02/25/25 02/25/25 History montelukast 10 mg tablet 10 mg PO BEDTIME 02/25/25 02/25/25 02/24/25 History prednisone 10 mg tablet See Taper PO DAILY 0502/25/25 02/25/25 History Physical Exam 2 Vital Signs and Narrative: Vital Signs: Last Vital Signs Temp 98.5 F 02/25/25 19:14 Pulse 89 02/25/25 19:14 Resp 20 02/25/25 19:14 BP 158/71 H 02/25/25 19:14 Pulse Ox 93 02/25/25 19:14 O2 Del Method Nasal Cannula 02/25/25 19:14 O2 Flow Rate 2 02/25/25 19:14 BMI result Body Mass Index 27.4 Results Labs 02/25/25 15:50 02/25/25 15:50 Labs: Laboratory Results - last 24 hr 02/25/25 15:50 MCV 91.3 MCH 29.1 MCHC 31.9 RDW 13.1 Plt Count 581 H MPV 8.2 L Immature Gran % (Auto) 0.8 H Neut % (Auto) 84.9 H Lymph % (Auto) 12.5 L [place] % (Auto) 1.6 L Eos % (Auto) 0.0 Baso % (Auto) 0.2 Lymph # (Auto) 1.3 [place] # (Auto) 0.2 Eos # (Auto) 0.0 Baso # (Auto) 0.0 Abs Immat Gran (auto) 0.08 H Absolute Neuts (auto) 8.8 H Absolute Nucleated RBC 0.000 Nucleated RBC % (auto) 0.0 Anion Gap 12 Estim Creat Clear Calc 81.7 Estimated GFR > 60 Random Glucose 145 H Calcium 9.0 Total Bilirubin 0.3 AST 30 ALT 50 H Alkaline Phosphatase 63 Total Protein 6.8 Albumin 3.8 Influenza Type A (PCR) NEGATIVE Influenza Type B (PCR) NEGATIVE RSV RNA Qual (PCR) NEGATIVE SARS-CoV-2 RNA (RT-PCR) NEGATIVE Imaging Radiologist's Impressions: Impressions Chest X-Ray 02/25/25 15:13 IMPRESSION: Consider chronic interstitial lung disease without acute airspace disease. Electronically signed by: Jose J Antunez MD 02/25/2025 03:42 PM EDT Assessment and Plan (1) COPD exacerbation: Status: Acute (2) Hypothyroid: Qualifiers: Hypothyroidism type: unspecified Qualified Code(s): E03.9 - Hypothyroidism, unspecified Status: Acute (3) Hyperlipidemia: Qualifiers: Hyperlipidemia type: unspecified Qualified Code(s): E78.5 - Hyperlipidemia, unspecified Status: Acute Plan 74-year-old female with a history of COPD and active tobacco use presents with worsening shortness of breath after failing outpatient therapies for what she describes as pneumonia. Unclear if imaging or just exam prompted treatment. She states toward the end of her treatment which concluded approximately 4 days ago her breathing started to get worse and is now not responding to home therapies. 1. COPD exacerbation (failed outpatient therapies) -Levaquin 750 mg IV daily (failed on oral cephalosporin and azithromycin) -methylprednisolone 125 initially in ER; 60 mg IV q.6 hours -DuoNebs q.4 hours while awake -titrate O2 to maintain sats greater than or equal to 92% 2. Hypothyroid -continue outpatient supplementation 3. Hyperlipidemia -continue statin and outpatient dosing Full code Lovenox Patient will require at least 2 midnights going forward of inpatient stay to treat presumed pneumonia with IV antibiotics that has failed outpatient therapies. This can not be achieved a lesser acute setting Quality Stroke Does the patient have a stroke diagnosis?: No VTE Prior VTE?: No VTE Risk Level:: Medical - moderate - high VTE Device Contraindication: Treatment Not Indicated VTE Drug Contraindication: N/A - Med Ordered
--- NOTE | 2025-02-25 19:17 | PC.NURSE ---
this rn assumed care of pt, pt ambulatory to bathroom with steady gait, denies sob. vss. antibiotics administered at this time. pt sating 92-93 on 2l nc and nsr on tele.
[2025-02-25] MEDS: Albuterol/Iprat 2.5/0.5MG 3 ML AMPUL.NEB INHALE (19:44)
[2025-02-25] MEDS: Atorvastatin Calcium 20 MG TABLET PO (20:47)
[2025-02-25] MEDS: Montelukast Sodium 10 MG TABLET PO (20:47)
--- NOTE | 2025-02-25 20:48 | PC.NURSE ---
pt medicated per dec, tolerated whole well with water
--- NOTE | 2025-02-25 21:02 | MHC.EDTECH ---
patient put on a hospital bed
--- NOTE | 2025-02-25 22:24 | PC.NURSE ---
pt inhaler given to this rn by pharmacy, inhaler placed into xis patient specific bin.
[2025-02-26] VITALS (10 sets, daily range): BP systolic 119–144; BP diastolic 60–71; PULSE 64–94; RESP 18–20; TEMP 36.4–37.2; O2SAT 89–95; BMI 24.9
[2025-02-26] MEDS: 0.9 % Sodium Chloride Flush 3 ML SYRINGE IVFLUSH ×4 (01:11→23:34)
[2025-02-26 05:52] LABS: MANUAL DIFF FLAG NO
[2025-02-26 05:54] LABS: Basophils Percent Auto 0.1 % (0-2); Hemoglobin 12.8 g/dl (12.0-16.0); Imm Gran Abs Auto 0.09 X10*3/uL (0.00-0.03); Imm Gran Pct Auto 0.9 % (0.0-0.4); Mean Corpuscular Volume 90.7 fL (80.0-98.0); Mean Platelet Volume 8.4 fL (9.4-12.3); Monocytes Absolute Auto 0.1 X10*3/uL (0.1-1.2); Monocytes Percent Auto 0.6 % (2-11); Neutrophils Absolute Auto 8.6 x10*3/uL (2.0-8.3); Neutrophils Percent Auto 88.4 % (45-73); Platelet Count 552 X10*3/uL (160-400); Red Blood Count 4.41 X10*6/uL (4.20-5.50); Red Cell Distribution Width 13.1 % (11.0-16.0); White Blood Count 9.7 X10*3/uL (4.8-10.8)
[2025-02-26] MEDS: Levothyroxine Sodium 75 MCG TABLET PO (06:15)
[2025-02-26 06:19] LABS: Alanine Aminotransferase 48 U/L (0-31); Albumin Level 3.7 g/dL (3.5-5.0); Alkaline Phosphatase 59 U/L (39-117); Anion Gap 14 (12-20); Aspartate Amino Transferase 18 U/L (5-31); Bilirubin Total 0.3 mg/dL (0.0-1.0); Blood Urea Nitrogen 17 mg/dL (9-16); Calcium 8.9 mg/dL (8.4-10.2); Carbon Dioxide 25 mmol/L (22-29); Chloride 108 mmol/L (96-108); Creatinine Clr Calc Pharmacy 73.9; Estimated Glomerular Filt Rate > 60; Glucose Fasting 149 mg/dL (60-99); Potassium 4.4 mmol/L (3.3-5.1); Sodium 143 mmol/L (135-145); Total Protein 6.6 g/dL (6.5-8.0)
[2025-02-26] MEDS: Albuterol/Iprat 2.5/0.5MG 3 ML AMPUL.NEB INHALE ×4 (08:39→19:21)
[2025-02-26] MEDS: Fluticasone/Vilanterol 200/25 BLST.W.DEV 1 PUFF INHALE (08:41)
--- NOTE | 2025-02-26 14:27 | P.PNIM_ITS ---
Subjective Subjective Date of Service: 02/26/25 Interval History: Breathing slightly improved since admission. Review of Systems Denies chest pain Admits to shortness of breath that has worsened over the last week with productive cough Denies nausea vomiting diarrhea Denies fever chills Physical Exam 2 Vital Signs: Vital Signs: Last Vital Signs Temp 97.6 F 02/26/25 07:38 Pulse 76 02/26/25 12:02 Resp 18 02/26/25 12:02 BP 123/71 02/26/25 07:38 Pulse Ox 92 02/26/25 08:25 O2 Del Method Nasal Cannula 02/26/25 08:25 O2 Flow Rate 1 02/26/25 08:25 BMI result Body Mass Index 24.9 Const: Other: Awake alert no acute distress Resp: Other: Diminished at bases with scattered expiratory wheezes throughout; coarse rhonchi that clear with cough Cardio: Other: No S4; positive S1-S2; no S3 murmurs rubs or gallops GI: Other: Soft nontender nondistended normoactive bowel sounds Extrem: Other: No edema bilaterally Objective Data Active Medications Acetaminophen (Acetaminophen 325 Mg Tablet) 650 mg PO Q6H PRN PRN Reason: Pain, Mild 1-3,fever,headache Albuterol/Ipratropium (Albuterol/Iprat 2.5/0.5mg 3 Ml Ampul.Neb) 3 ml INHALE RQ4H WHILE AWAKE [facility] Last Admin: 02/26/25 12:00 Dose: 3 ml Documented By: SON Atorvastatin Calcium (Atorvastatin Calcium 20 Mg Tablet) 20 mg PO BEDTIME [facility] Last Admin: 02/25/25 20:47 Dose: 20 mg Documented By: GISELLE Calcium Carbonate (Calcium Carbonate 750 Mg Tab.Chew) 750 mg PO Q4H PRN PRN Reason: Heartburn Enoxaparin Sodium (Enoxaparin Sodium 40 Mg/0.4 Ml Syringe) 40 mg SUBCUT Q24H [facility] Last Admin: 02/25/25 18:34 Dose: Not Given Documented By: NASEEM Non-Admin Reason: Patient Refused Fluticasone/Vilanterol (Fluticasone/Vilanterol 200/25 Blst.W.Dev) 1 puff INHALE RDAILY [facility] Last Admin: 02/26/25 08:41 Dose: 1 puff Documented By: SON Levofloxacin (Levaquin) 750 mg in 150 mls @ 100 mls/hr IV Q24H [facility] Last Infusion: 02/25/25 20:45 Dose: Infused Documented By: GISELLE Levothyroxine Sodium (Levothyroxine Sodium 75 Mcg Tablet) 75 mcg PO DAILY@0600 [facility] Last Admin: 02/26/25 06:15 Dose: 75 mcg Documented By: CADENCE Magnesium Hydroxide (Milk Of Magnesia 30 Ml Oral.Susp) 30 ml PO DAILY PRN PRN Reason: Constipation Melatonin (Melatonin 3 Mg Tablet) 6 mg PO BEDTIME PRN PRN Reason: Insomnia Methylprednisolone Sodium Succinate (Methylprednisolone Sod Succ 125 Mg Vial) 60 mg IVPUSH Q6H [facility] Last Admin: 02/26/25 11:49 Dose: 60 mg Documented By: EDWARD Montelukast Sodium (Montelukast Sodium 10 Mg Tablet) 10 mg PO BEDTIME [facility] Last Admin: 02/25/25 20:47 Dose: 10 mg Documented By: GISELLE Sodium Chloride (0.9 % Sodium Chloride Flush 3 Ml Syringe) 3 ml IVFLUSH QSHIFT [facility] Last Admin: 02/26/25 07:39 Dose: 3 ml Documented By: EDWARD Labs 02/26/25 05:28 02/26/25 05:28 Labs: Laboratory Results - last 24 hr 02/25/25 02/26/25 15:50 05:28 MCV 91.3 90.7 MCH 29.1 29.0 MCHC 31.9 32.0 RDW 13.1 13.1 Plt Count 581 H 552 H MPV 8.2 L 8.4 L Immature Gran % (Auto) 0.8 H 0.9 H Neut % (Auto) 84.9 H 88.4 H Lymph % (Auto) 12.5 L 10.0 L [place] % (Auto) 1.6 L 0.6 L Eos % (Auto) 0.0 0.0 Baso % (Auto) 0.2 0.1 Lymph # (Auto) 1.3 1.0 L [place] # (Auto) 0.2 0.1 Eos # (Auto) 0.0 0.0 Baso # (Auto) 0.0 0.0 Abs Immat Gran (auto) 0.08 H 0.09 H Absolute Neuts (auto) 8.8 H 8.6 H Absolute Nucleated RBC 0.000 0.000 Nucleated RBC % (auto) 0.0 0.0 Anion Gap 12 14 Estim Creat Clear Calc 81.7 73.9 Estimated GFR > 60 > 60 Random Glucose 145 H Fasting Glucose 149 H Calcium 9.0 8.9 Total Bilirubin 0.3 0.3 AST 30 18 ALT 50 H 48 H Alkaline Phosphatase 63 59 Total Protein 6.8 6.6 Albumin 3.8 3.7 Influenza Type A (PCR) NEGATIVE Influenza Type B (PCR) NEGATIVE RSV RNA Qual (PCR) NEGATIVE SARS-CoV-2 RNA (RT-PCR) NEGATIVE Assessment and Plan (1) COPD exacerbation: Status: Acute (2) Hypothyroid: Status: Acute Plan 74-year-old female with a history of COPD and active tobacco use presents with worsening shortness of breath after failing outpatient therapies for what she describes as pneumonia. Unclear if imaging or just exam prompted treatment. She states toward the end of her treatment which concluded approximately 4 days ago her breathing started to get worse and is now not responding to home therapies. 1. COPD exacerbation (failed outpatient therapies)(2) -Levaquin 750 mg IV daily (failed on oral cephalosporin and azithromycin) -methylprednisolone 125 initially in ER; 60 mg IV q.6 hours -DuoNebs q.4 hours while awake -titrate O2 to maintain sats greater than or equal to 92% 2. Hypothyroid -continue outpatient supplementation 3. Hyperlipidemia -continue statin and outpatient dosing Full code Lovenox Will require ongoing hospitalization for IV antibiotics and IV steroids to treat COPD exacerbation that has failed outpatient therapies Quality Stroke Does the patient have a stroke diagnosis?: No VTE Prior VTE?: No VTE Risk Level:: Medical - moderate - high VTE Device Contraindication: Treatment Not Indicated VTE Drug Contraindication: N/A - Med Ordered
--- NOTE | 2025-02-26 15:48 | MHC.CM.PN ---
IMM DELIVERED. PATIENT LIVES IN A HOME W/ HER ADULT SON AND 2 GRANDCHILDREN. FUNCTIONALLY INDEPENDENT. DENIES USE OF DME OR SERVICES. PCP PANCHITO ALMENDAREZ MD REPORTS SHE HAS AN HCP NAMING HER SON, RHODA, [facility]. COPY REQUESTED. DP: ANTICIPATE DC HOME W/ FAMILY. SON TO TRANSPORT. CM WILL CONTINUE TO FOLLOW.
[2025-02-26] MEDS: Atorvastatin Calcium 20 MG TABLET PO (21:10)
[2025-02-26] MEDS: Montelukast Sodium 10 MG TABLET PO (21:10)
[2025-02-26] MEDS: levoFLOXacin/D5W 750 MG/150 ML PIGGYBACK 100 MG IV (21:10)
[2025-02-27 03:44] VITALS: BP 119/57; PULSE 79; RESP 18; TEMP 36.7; O2SAT 94
[2025-02-27] MEDS: Levothyroxine Sodium 75 MCG TABLET PO (05:30)
[2025-02-27 07:45] VITALS: BP 117/59; PULSE 84; RESP 16; TEMP 37.6; O2SAT 92
[2025-02-27] MEDS: 0.9 % Sodium Chloride Flush 3 ML SYRINGE IVFLUSH (08:09)
[2025-02-27] MEDS: Fluticasone/Vilanterol 200/25 BLST.W.DEV 1 PUFF INHALE (08:22)
[2025-02-27] MEDS: Albuterol/Iprat 2.5/0.5MG 3 ML AMPUL.NEB INHALE ×2 (08:22→11:51)
[2025-02-27 08:24] VITALS: PULSE 76; RESP 16; O2SAT 92
--- NOTE | 2025-02-27 11:41 | PM.DS ---
DS: Providers Provider Date of Service: 02/27/25 Date of admission: 02/25/25 17:35 Date of discharge: 02/27/25 Primary care physician: Ciera Ingram MD DS: Diagnosis Discharge Diagnosis (1) COPD exacerbation: Status: Acute (2) Hypothyroid: Status: Acute DS: Summary Hospital Course Hospital Course: 74-year-old female with known history of COPD in backdrop of active tobacco use presents with worsening shortness of breath. Patient states approximately 2 weeks ago she was seen by her PCP and treated with 2 antibiotics 1 being azithromycin and a prednisone taper for pneumonia. (unclear if there was imaging). Recently completed both and towards the end of the prednisone taper states her breathing began to worsened. She endorses a productive cough of yellow-green sputum and extensive wheezing. She states her inhalers were of no help to her. She presents to ER where her room air sats were in the 80s and responded to 2 L on nasal cannula and are now 93. She will be admitted with COPD exacerbation that has failed outpatient therapies Hospital Course Admitted to general medical floor and started on IV Levaquin and IV Solu-Medrol. She was given aggressive DuoNebs and on over the course of the next 48 hours she improved to the point of having no oxygen requirement. At this point in time she will be discharged to complete an oral course of Levaquin, and a prednisone taper. She will obtain a nebulizer from our hospital pharmacy in the DuoNeb solution we will be called into her local pharmacy. She will follow up with the PCP next available Time Attestation Discharge Coordination Time (in mins): 35 Quality: Safe Use of Opioids Does Pt have an Active Cancer Diagnosis on the Problem List?: No Quality: Stroke Does the patient have a stroke diagnosis?: No Physical Exam Vital Signs: Vital Signs: Last Vital Signs Temp 99.7 F 02/27/25 07:45 Pulse 76 02/27/25 08:24 Resp 16 02/27/25 08:24 BP 117/59 L 02/27/25 07:45 Pulse Ox 92 02/27/25 07:45 O2 Del Method Room Air 02/27/25 07:45 O2 Flow Rate 1 02/26/25 08:25 BMI result Body Mass Index 24.9 Const: Other: Awake alert no acute distress Resp: Other: Improved aeration to bases; marked decrease in expiratory wheezes. Still with coarse rhonchi scattered throughout the clear with cough Cardio: Other: No S4; positive S1-S2; no S3 murmurs rubs or gallops GI: Other: Soft nontender nondistended normoactive bowel sounds Extrem: Other: No edema bilaterally Discharge Plan Discharge Anticipated Discharge Date/Time: 02/27/25 11:32 Patient Disposition: Home, Self-Care Discharge Diagnosis: COPD exacerbation Referrals: Ciera Ingram MD [Primary Care Provider] - 1 Week Discharge Medications: New ipratropium-albuterol 0.5 mg-3 mg(2.5 mg base)/3 mL Solution For Nebulization 3 ml inhalation RQ4H WHILE AWAKE Qty: 270 0RF prednisone 10 mg tablet See Rx Instructions .Route .COMPLEX Qty: 45 0RF Rx Instructions: 10 mg orally; 5 tabs p.o. daily x3 days; 4 tabs p.o. daily x3 days; 3 tabs daily x3 days; 2 tabs daily x3 days; 1 tab daily x3 days levofloxacin 500 mg tablet 500 mg PO DAILY 5 Days Qty: 5 0RF Trelegy Ellipta 100-62.5-25 mcg blister with device 1 inh inhalation DAILY Qty: 60 1RF Continued atorvastatin 20 mg tablet 20 mg PO BEDTIME clobetasol 0.05 % cream 1 appl topical BID PRN (Reason: Rash) levothyroxine 75 mcg tablet 75 mcg PO DAILY@0600 montelukast 10 mg tablet 10 mg PO BEDTIME albuterol sulfate 90 mcg/actuation HFA aerosol inhaler 2 puff inhalation Q6H PRN (Reason: wheezing) Discontinued prednisone 10 mg tablet See Taper PO DAILY Taper: Prednisone 20 mg daily for 2 Days and 0 Hour 10 mg daily for 2 Days and 0 Hour fluticasone propion-salmeterol [Wixela Inhub] 500-50 mcg/dose blister with device 1 ea INHALATION BID Discharge Orders: Discharge Order (Routine); Ordered 02/27/25 Ordered By: Jose Alfredo West Diet: Advance to usual diet Activity on Discharge: As tolerated Stand Alone Forms: Patient Portal Discharge page Print Language: Chilean Care Plan Goals: Levaquin 500 mg daily x5 days has been added to your regimen. Prednisone taper has been added as well. Take as prescribed. Trelegy has been added as well. 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
--- NOTE | 2025-02-27 11:44 | MHC.CM.PN ---
Patient medically cleared for dc home self care via private transport.
[2025-02-27 11:54] VITALS: PULSE 94; RESP 18; O2SAT 92
== END 2025-02-27 14:04 | disposition home or self-care (01) | DRG 192 ==
LOC: HO.ED 17:27 → HO.EDOVER 17:39 → HO.S3 23:46
PROVIDERS: Registered Nurse Emergency; Admitting Provider Hospitalist; Emergency Provider Emergency Medicine; PCP Student in an Organized Health Care Education/Training Program; Visit Provider Hospitalist
DX: J44.1 Chronic obstructive pulmonary disease with (acute) exacerbation (principal); E03.9 Hypothyroidism, unspecified; E78.5 Hyperlipidemia, unspecified; Z20.822 Contact with and (suspected) exposure to COVID-19; Z87.891 Personal history of nicotine dependence; Z79.51 Long term (current) use of inhaled steroids; Z79.890 Hormone replacement therapy; Z79.899 Other long term (current) drug therapy
CPT/HCPCS: 0241U; 36415; 71046; 80053; 85025; 93005; 94640; 99285; J1650; J1956; J2919

== ENCOUNTER → 2025-02-25 15:13 | Outpatient (BNV) | payer MEDICARE, OTHER, SELFPAY | PROVIDERS: Emergency Provider Emergency Medicine; PCP Student in an Organized Health Care Education/Training Program; Visit Provider Radiology Diagnostic Radiology | DX: J44.1 Chronic obstructive pulmonary disease with (acute) exacerbation (principal) | CPT/HCPCS: 71046 ==

== ENCOUNTER → 2025-02-25 17:35 | Outpatient (BNV) | payer MEDICARE, OTHER, SELFPAY | PROVIDERS: Admitting Provider Hospitalist; Emergency Provider Emergency Medicine; PCP Student in an Organized Health Care Education/Training Program; Visit Provider Hospitalist | DX: J44.1 Chronic obstructive pulmonary disease with (acute) exacerbation (principal); E03.9 Hypothyroidism, unspecified | CPT/HCPCS: 99223; 99232; 99239 ==